=== PATIENT | female | born 1990 | race Caucasian/White ===

== ENCOUNTER 2023-11-07 15:59 | Emergency (ER) | payer MEDICAID ==
[~2023-11-07] VITALS: Ht 154.9 cm; Wt 50.0 kg
[2023-11-07 16:32] VITALS: RESP 18
[2023-11-07 17:20] VITALS: BP 98/69; PULSE 68; O2SAT 98
[2023-11-07 17:29] LABS: STREP A SCREEN NEGATIVE (Neg)
[2023-11-07 18:10] VITALS: TEMP 98.2
== END 2023-11-07 18:11 | disposition home or self-care (01) ==
LOC: ER 16:02
DX: U07.1 COVID-19 (principal)
CPT/HCPCS: 87081; 87880; 99283

== ENCOUNTER 2024-10-20 09:28 | Outpatient (CLI) | payer SELFPAY ==
[2024-10-21 11:09] LABS: ESTRADIOL <5.0 pg/mL (.); PROGESTERONE 0.2 ng/mL (.)
== END 2024-10-20 23:59 | disposition home or self-care (01) ==
LOC: LAB 09:28
PROVIDERS: ATTEND Obstetrics & Gynecology Reproductive Endocrinology
DX: Z00.00 Encounter for general adult medical examination without abnormal findings (principal); Z13.29 Encounter for screening for other suspected endocrine disorder
CPT/HCPCS: 36415; 82670; 84144

== ENCOUNTER 2024-10-27 09:00 | Outpatient (CLI) | payer SELFPAY ==
[2024-10-28 13:10] LABS: PROGESTERONE 0.1 ng/mL (.)
== END 2024-10-27 23:59 | disposition home or self-care (01) ==
LOC: LAB 09:00
PROVIDERS: ATTEND Obstetrics & Gynecology Reproductive Endocrinology
DX: Z00.00 Encounter for general adult medical examination without abnormal findings (principal); Z13.29 Encounter for screening for other suspected endocrine disorder
CPT/HCPCS: 36415; 82670; 84144

== ENCOUNTER 2024-10-31 07:33 | Outpatient (CLI) | payer SELFPAY ==
[2024-11-01 15:08] LABS: PROGESTERONE 0.3 ng/mL (.)
== END 2024-10-31 23:59 | disposition home or self-care (01) ==
LOC: LAB 07:33
PROVIDERS: ATTEND Obstetrics & Gynecology Reproductive Endocrinology
DX: Z00.00 Encounter for general adult medical examination without abnormal findings (principal); Z13.29 Encounter for screening for other suspected endocrine disorder
CPT/HCPCS: 36415; 82670; 84144

== ENCOUNTER 2024-11-03 07:51 | Outpatient (CLI) | payer SELFPAY | END 2024-11-03 23:59 | disposition home or self-care (01) | LOC: RAD 07:51 | PROVIDERS: ATTEND Obstetrics & Gynecology Reproductive Endocrinology | DX: Z13.29 Encounter for screening for other suspected endocrine disorder (principal) | CPT/HCPCS: 36415; 82670 ==

== ENCOUNTER 2025-01-23 07:39 | Outpatient (CLI) | payer SELFPAY ==
[2025-01-26 11:12] LABS: ESTRADIOL 59.8 pg/mL (.); PROGESTERONE 0.4 ng/mL (.)
== END 2025-01-23 23:59 | disposition home or self-care (01) ==
LOC: LAB 07:39
PROVIDERS: ATTEND Obstetrics & Gynecology Reproductive Endocrinology
DX: Z00.00 Encounter for general adult medical examination without abnormal findings (principal); Z13.29 Encounter for screening for other suspected endocrine disorder
CPT/HCPCS: 36415; 82670; 84144

== ENCOUNTER 2025-01-31 07:40 | Outpatient (CLI) | payer SELFPAY | END 2025-01-31 23:59 | disposition home or self-care (01) | LOC: LAB 07:40 | PROVIDERS: ATTEND Obstetrics & Gynecology Reproductive Endocrinology | DX: Z13.29 Encounter for screening for other suspected endocrine disorder (principal) | CPT/HCPCS: 36415; 82670 ==